=== PATIENT | female | born 1995 | race Caucasian/White ===

== ENCOUNTER 2019-09-02 22:10 | Emergency (ER) | payer BC, OTHER ==
[~2019-09-02] VITALS: Ht 170.2 cm; Wt 92.3 kg
[2019-09-02 22:12] VITALS: BP 118/94; TEMP 98
[2019-09-02 22:57] LABS: BASO # 0.1 (0.0-0.2); BASO % 0.5 % (0.0-2.0); EOS # 0.1 (0.0-0.7); EOS % 0.6 % (0-4.0); GRAN # 6.8 (1.4-6.5); GRAN % 73.1 % (42.2-75.2); HEMATOCRIT 41.7 % (37.0-47.0); HEMOGLOBIN 13.5 g/dl (12.5-16.0); LYMPH # 1.4 (1.2-3.4); LYMPH % 15.1 % (20.0-51.0); MEAN CELL VOLUME 77 fl (80.0-100.0); MEAN CORPUSCULAR HEMOGLOBIN 25 pg (27.0-31.0); MEAN CORPUSCULAR HGB CONC 32 g/dl (33.0-37.0); MONO % 10.3 % (1.7-9.3); PLATELET COUNT 247 K/mm3 (130-400); RED BLOOD COUNT 5.43 M/mm3 (4.10-5.30); REDCELL DISTRIBUTION WIDTH-CV 21.3 % (11.5-14.5)
[2019-09-02 23:09] LABS: ALANINE AMINOTRANSFERASE 35 U/L (4-34); ALBUMIN 4.3 gm/dL (3.5-5.0); ALKALINE PHOSPHATASE 153 U/L (50-136); ANION GAP 17 mmol/L (7-16); AST,SGOT 28 U/L (15-37); BILIRUBIN,TOTAL 1.6 mg/dL (0.0-1.0); BLOOD UREA NITROGEN 6 mg/dL (7-17); CALCIUM 10.6 mg/dL (8.4-10.2); CARBON DIOXIDE 17 mmol/L (22-30); CHLORIDE 105 mmol/L (98-107); GLUCOSE 89 mg/dL (74-106); LIPASE 1282 U/L (23-300); POTASSIUM 3.4 mmol/L (3.4-5.0); SODIUM 138 mmol/L (137-145); TOTAL PROTEIN 7.5 gm/dL (6.4-8.2)
[2019-09-02 23:10] LABS: C-REACTIVE PROTEIN < 0.5 mg/dL (0.0-0.9)
[2019-09-02] MEDS ORDERED: LEXAPRO20 MG PO (23:55)
[2019-09-02] MEDS ORDERED: VISTARIL100 MG PO (23:55)
[2019-09-02] MEDS ORDERED: CARAFATE 1GM1 G PO (23:56)
[2019-09-02] MEDS ORDERED: PRIL40 PO (23:57)
[2019-09-02] MEDS ORDERED: PROMETHAZINE12.5 M5 PO (23:57)
[2019-09-02] MEDS ORDERED: KYLEENA1 EACH IY (23:58)
[2019-09-02] MEDS ORDERED: ALBUTEROL1.25 MG/3 IH (23:58)
[2019-09-03 00:04] LABS: COLLECTION METHOD CLEAN CATCH
[2019-09-03 00:18] LABS: MUCOUS Present /lpf; PH 5 (5-8); SQUAMOUS EPITHELIAL 0-2 /hpf; URINE APPEARANCE Clear; URINE BACTERIA None Seen /hpf; URINE BILIRUBIN Negative (NEGATIVE); URINE BLOOD Negative (NEGATIVE); URINE COLOR Yellow; URINE GLUCOSE Negative (NEGATIVE); URINE KETONE 2+ (NEGATIVE); URINE LEUKOCYTE ESTERASE Negative (NEGATIVE); URINE NITRATE Negative (NEGATIVE); URINE PROTEIN(semi-quant) 2+ (NEGATIVE); URINE RBC 0-2 /hpf; URINE UROBILINOGEN Negative (NEGATIVE)
[2019-09-03] MEDS ORDERED: ZOFRAN 4MG T4 MG/TAB PO (02:44)
[2019-09-03] MEDS ORDERED: PHENERGAN 25 TA25 MG PO (02:44)
[2019-09-03] MEDS ORDERED: NORCO 325 MG-51 TAB PO (02:44)
[2019-09-03 03:42] VITALS: PULSE 64
== END 2019-09-03 03:40 | disposition home or self-care (01) ==
LOC: COL.ER 22:10
PROVIDERS: Emergency Medicine
DX: G89.18 Other acute postprocedural pain (principal); R10.11 Right upper quadrant pain; R10.12 Left upper quadrant pain; R11.2 Nausea with vomiting, unspecified; R55 Syncope and collapse; Z90.49 Acquired absence of other specified parts of digestive tract; Z98.84 Bariatric surgery status; Z88.2 Allergy status to sulfonamides
CPT/HCPCS: J2405; J2550; J3010; J7030; Q9967

== ENCOUNTER 2019-09-06 05:29 | Emergency (ER) | payer BC, OTHER ==
[~2019-09-06] VITALS: Ht 170.2 cm; Wt 90.9 kg
[~2019-09-06 05:29] MED LIST: ALBUTEROL1.25 MG/3 IH; CARAFATE 1GM1 G PO; KYLEENA1 EACH IY; LEXAPRO20 MG PO; NORCO 325 MG-51 TAB PO; PHENERGAN 25 TA25 MG PO; PRIL40 PO; PROMETHAZINE12.5 M5 PO; VISTARIL100 MG PO; ZOFRAN 4MG T4 MG/TAB PO
[2019-09-06 05:33] VITALS: BP 116/82
[2019-09-06 06:07] LABS: COLLECTION METHOD CLEAN CATCH
[2019-09-06 06:09] LABS: BASO % 0.5 % (0.0-2.0); EOS # 0.1 (0.0-0.7); EOS % 1.4 % (0-4.0); GRAN # 4.8 (1.4-6.5); HEMATOCRIT 42.9 % (37.0-47.0); HEMOGLOBIN 13.9 g/dl (12.5-16.0); LYMPH # 2.3 (1.2-3.4); LYMPH % 27.4 % (20.0-51.0); MEAN CELL VOLUME 78 fl (80.0-100.0); MEAN CORPUSCULAR HEMOGLOBIN 25 pg (27.0-31.0); MEAN CORPUSCULAR HGB CONC 32 g/dl (33.0-37.0); MONO # 1.1 (0.1-0.6); MONO % 13.2 % (1.7-9.3); PLATELET COUNT 241 K/mm3 (130-400); RED BLOOD COUNT 5.52 M/mm3 (4.10-5.30); REDCELL DISTRIBUTION WIDTH-CV 21.3 % (11.5-14.5)
[2019-09-06 06:13] LABS: MUCOUS Present /lpf; PH 6 (5-8); SQUAMOUS EPITHELIAL 0-2 /hpf; URINE APPEARANCE Clear; URINE BACTERIA Rare /hpf; URINE BILIRUBIN Positive (NEGATIVE); URINE BLOOD Negative (NEGATIVE); URINE COLOR Amber; URINE GLUCOSE Negative (NEGATIVE); URINE KETONE 2+ (NEGATIVE); URINE LEUKOCYTE ESTERASE Negative (NEGATIVE); URINE NITRATE Negative (NEGATIVE); URINE PROTEIN(semi-quant) 2+ (NEGATIVE); URINE RBC 0-2 /hpf; URINE UROBILINOGEN >=4.0 mg/dL (NEGATIVE)
[2019-09-06 06:20] LABS: ALANINE AMINOTRANSFERASE 52 U/L (4-34); ALBUMIN 4.2 gm/dL (3.5-5.0); ALKALINE PHOSPHATASE 156 U/L (50-136); ANION GAP 15 mmol/L (7-16); AST,SGOT 39 U/L (15-37); BILIRUBIN,TOTAL 1.9 mg/dL (0.0-1.0); BLOOD UREA NITROGEN 3 mg/dL (7-17); C-REACTIVE PROTEIN < 0.5 mg/dL (0.0-0.9); CALCIUM 10.3 mg/dL (8.4-10.2); CARBON DIOXIDE 18 mmol/L (22-30); CHLORIDE 105 mmol/L (98-107); CREATININE, serum 0.57 (0.52-1.25); GLUCOSE 82 mg/dL (74-106); LIPASE 820 U/L (23-300); POTASSIUM 3.3 mmol/L (3.4-5.0); SODIUM 139 mmol/L (137-145); TOTAL PROTEIN 7.5 gm/dL (6.4-8.2)
[2019-09-06 09:02] VITALS: PULSE 88; TEMP 97.9
== END 2019-09-06 09:09 | disposition short-term general hospital (02) ==
LOC: COL.ER 05:29
PROVIDERS: Emergency Medicine
DX: K85.90 Acute pancreatitis without necrosis or infection, unspecified (principal); Z90.49 Acquired absence of other specified parts of digestive tract; Z98.84 Bariatric surgery status
CPT/HCPCS: J1170; J1630; J2270; J2550; J3480; J7030